=== PATIENT | female | born 1995 | race Caucasian/White ===

== ENCOUNTER 2016-08-23 17:36 | Emergency (ER) | payer OTHER ==
[~2016-08-23] VITALS: Ht 149.9 cm; Wt 54.4 kg
[~2016-08-23 17:36] MED LIST: ALBU-136 IH; FLUT1DSK IH; MONT4CTB PO
[2016-08-23 19:12] VITALS: BP 113/68
--- NOTE | 2016-08-23 19:37 | NUR ---
Patient ambulated to bed 8.
--- NOTE | 2016-08-23 19:53 | NUR ---
20Y F PRESENTED IN ER C/O OF ABSCESS TO SIDE OF HER LEFT BREAST STARTED A WEEK AGO AND ITS A SIZE OF A QUARTER. PT STATES IT BOTHERS HER A LOT AND ITS PAINFUL. V/S WNL.
[2016-08-23 21:20] VITALS: BP 120/72
--- NOTE | 2016-08-23 21:20 | NUR ---
Patient discharged with v/s stable. Written and verbal after care instructions given and explained. Patient alert, oriented and verbalized understanding of instructions. Ambulatory with steady gait. All questions addressed prior to discharge. ID band removed. Patient advised to follow up with PMD. Rx of KEFLEX AND BACTRIM given. Patient educated on indication of medication including possible reaction and side effects. Opportunity to ask questions provided and answered.
== END 2016-08-23 21:20 | disposition home or self-care (01) ==
LOC: MED 17:36
DX: L03.112 Cellulitis of left axilla (principal); J45.909 Unspecified asthma, uncomplicated; Z88.6 Allergy status to analgesic agent
CPT/HCPCS: 99283

== ENCOUNTER 2021-04-17 14:45 | Emergency (ER) | payer MEDICAID, OTHER ==
[~2021-04-17] VITALS: Ht 149.9 cm; Wt 65.8 kg
[~2021-04-17 14:45] MED LIST changes: +ALBU-118 IH; -ALBU-136 IH
[2021-04-17 14:52] VITALS: BP 124/86
[2021-04-17] MEDS ORDERED: ONDANSETRON 4 MG/2 ML VIAL IVP ONE (15:15)
[2021-04-17 15:47] LABS: BASOPHILS % (AUTO) 0.2 % (0.0-2.0); EOSINOPHILS # (AUTO) 0.2 K/uL (0-0.4); EOSINOPHILS % (AUTO) 1.1 % (0.0-4.0); HEMATOCRIT 41.4 % (36-48); HEMOGLOBIN 14.7 g/dL (12.0-16.0); LYMPHOCYTES # (AUTO) 2.8 K/uL (2.5-16.5); LYMPHOCYTES % (AUTO) 18.8 % (20.5-51.1); MEAN CORPUSCULAR HEMOGLOBIN 30 pg (27-31); MEAN CORPUSCULAR HGB CONC 35 g/dL (33-37); MEAN CORPUSCULAR VOLUME 83.9 fL (80-94); MONOCYTES # (AUTO) 0.8 K/uL (0.8-1.0); MONOCYTES % (AUTO) 5.2 % (1.7-9.3); NEUTROPHILS # (AUTO) 11.1 K/uL (1.8-7.7); NEUTROPHILS % (AUTO) 74.7 % (42.2-75.2); PLATELET COUNT (AUTO) 396 K/uL (140-450); RED BLOOD CELL COUNT(AUTO) 4.94 MIL/uL (4.20-5.40); RED CELL DISTRIBUTION WIDTH 12.8 % (11.6-13.7); WHITE BLOOD COUNT (AUTO) 14.9 K/uL (4.8-10.8)
[2021-04-17 16:02] LABS: ALBUMIN 3.9 g/dL (3.4-5.0); ANION GAP 13.9 (8-16); CARBON DIOXIDE 24.7 mmol/L (21-32); CREATININE 0.8 mg/dL (0.6-1.3); POTASSIUM 3.6 mmol/L (3.5-5.1); TOTAL BILIRUBIN 0.4 mg/dL (0.0-1.0)
[2021-04-17] MEDS ORDERED: NACL 0.9% 1,000 ML IV ONE (16:10)
[2021-04-17 18:25] VITALS: BP 124/86
== END 2021-04-17 18:18 | disposition home or self-care (01) ==
LOC: MED 14:45
DX: R11.2 Nausea with vomiting, unspecified (principal); R19.7 Diarrhea, unspecified; F12.10 Cannabis abuse, uncomplicated; J45.909 Unspecified asthma, uncomplicated; Z88.6 Allergy status to analgesic agent
CPT/HCPCS: 36415; 80053; 81002; 81025; 83690; 85025; 96361; 96374; 99283; J2405; J7030